=== PATIENT | female | born 1990 | race Two or more races ===

== ENCOUNTER 2019-01-26 01:54 | Emergency (ER) | payer MEDICAID ==
[~2019-01-26] VITALS: Ht 165.1 cm; Wt 56.7 kg
[2019-01-26 02:12] VITALS: BP 100/60
--- NOTE | 2019-01-26 02:12 | NUR ---
ED Nurse Note: Pt walked in c/o burning when urinating, frequency with urination, abd pain 4/10 pain. Pt stated she finished her antibiotics 2 weeks ago. Pt has reoccuring UTI; pt stated she had 6 UTI in 2019. AO4. NAD. VSS URINE COLLECTED; SENT DOWN TO LAB.
[2019-01-26 02:30] LABS: BILIRUBIN, URINE NEGATIVE (NEGATIVE); GLUCOSE, URINE (UA) NEGATIVE (NEGATIVE); KETONES,URINE NEGATIVE (NEGATIVE); LEUKOCYTE ESTERASE ,URINE 2+ (NEGATIVE); NITRITE,URINE NEGATIVE (NEGATIVE); PH,URINE 8 (4.5-8.0); PROTEIN,URINE 2+ (NEGATIVE); UROBILINOGEN,URINE NORMAL MG/DL (0.0-1.0)
--- NOTE | 2019-01-26 02:30 | Emergency Room Report ---
History of Present Illness General Chief Complaint: Female Urogenital Problems Source: Patient Present Illness HPI This is a 28-year-old female with no past medical history. She does get frequent urinary tract infection. She presents with chief complaint of dysuria , frequency, urgency but no hematuria. Onset yesterday. She had similar symptom about 2 weeks ago in [place]. She was given antibiotics for 7 days. Symptoms got better but came back again. In her life, she had about 7 episode of UTIs already. Does not know urine cultures. Denies any other complaint. No back pain. No nausea no vomiting. Worse with urination. Allergies: Coded Allergies: No Known Allergies (Unverified , 01/26/19) Patient History Past Medical History: see triage record, old chart reviewed Past Surgical History: none Pertinent Family History: none Social History: Denies: smoking Last Menstrual Period: Taye shot 3 years ago Now: No Immunizations: other Reviewed Nursing Documentation: PMH: Agreed; PSxH: Agreed Review of Systems Eye: Denies: eye pain, blurred vision ENT: Denies: ear pain, nose congestion, throat swelling Respiratory: Denies: cough, shortness of breath Cardiovascular: Denies: chest pain, palpitations Gastrointestinal: Denies: abdominal pain, diarrhea, nausea, vomiting Genitourinary: Reports: dysuria, frequency, urgency Musculoskeletal: Denies: back pain, joint pain Skin: Denies: rash Neurological: Denies: headache, numbness Endocrine: Denies: increased thirst, increased urine Hematologic/Lymphatic: Denies: easy bruising All Other Systems: negative except mentioned in HPI Physical Exam Vital Signs Date Time Temp Pulse Resp B/P (MAP) Pulse Ox O2 Delivery O2 Flow Rate FiO2 01/26/19 01:56 98.1 63 16 100/60 (73) 94 Room Air Vitals normal Sp02 EP Interpretation: reviewed, normal General Appearance: well appearing, no apparent distress, alert Head: normocephalic, atraumatic Eyes: bilateral eye PERRL, bilateral eye EOMI ENT: hearing grossly normal, normal pharynx Neck: full range of motion, supple, no meningismus Respiratory: chest non-tender, lungs clear, normal breath sounds Cardiovascular #1: regular rate, rhythm, no murmur Gastrointestinal: normal bowel sounds, non tender, no mass, no organomegaly, no bruit, non-distended Musculoskeletal: back normal, gait/station normal, normal range of motion Psychiatric: mood/affect normal Medical Decision Making Diagnostic Impression: Primary Impression: UTI (urinary tract infection) Qualified Codes: N30.00 - Acute cystitis without hematuria ER Course This patient presents with symptoms consistent with UTI. I called the [facility]. She had been on Macrobid in the past and most recently Flagyl. Put on Keflex. No evidence of pyelonephritis. Last Vital Signs Date Time Temp Pulse Resp B/P (MAP) Pulse Ox O2 Delivery O2 Flow Rate FiO2 01/26/19 02:12 98.1 68 16 100/60 94 Room Air Status: improved Disposition: HOME, SELF-CARE Condition: Stable Scripts Phenazopyridine Hcl* (PYRIDIUM*) 200 Mg Tablet 200 MG ORAL THREE TIMES A DAY, #6 TAB 0 Refills Prov: Christiano Levine MD 01/26/19 Cephalexin* (KEFLEX*) 500 Mg Capsule 500 MG ORAL TID, #21 CAP Prov: Christiano Levine MD 01/26/19 Referrals: [facility],REFERRING (PCP) Patient Instructions: Urinary Tract Infection Additional Instructions: Follow-up with in 7 days for recheck. Return if symptoms worsen. Christiano Levine MD Jan 26, 2019 02:30
[2019-01-26 02:44] LABS: APPEARANCE,URINE SLIGHTLY CLOUDY; COLOR,URINE YELLOW
[2019-01-26] MEDS ORDERED: Phenazopyridine 200mg tab ORAL ONE (03:00)
[2019-01-26] MEDS ORDERED: Cephalexin 500mg cap ORAL ONE (03:00)
[2019-01-26] MEDS ORDERED: CEPHALEXIN500 MG ORAL (03:03)
[2019-01-26] MEDS ORDERED: PHENAZOPYRIDIN200 MG ORAL (03:03)
[2019-01-26 03:09] VITALS: BP 100/60
--- NOTE | 2019-01-26 03:10 | NUR ---
ER DISCHARGE NOTE: Patient is cleared to be discharged per ERMD, pt is aox4, on room air, with stable vital signs. pt was given dc and prescription instructions, pt was able to verbalize understanding, pt id band REMOVED. pt is able to ambulate with steady gait. pt took all belongings.
== END 2019-01-26 03:10 | disposition home or self-care (01) ==
LOC: EMR 02:08
DX: N30.00 Acute cystitis without hematuria (principal); Z87.440 Personal history of urinary (tract) infections
CPT/HCPCS: 81003; 81025; 87086; Z7502; 99284